=== PATIENT | female | born 1990 | race Caucasian/White ===

== ENCOUNTER 2016-06-05 08:29 | Emergency (ER) | payer OTHER ==
[~2016-06-05] VITALS: Wt 95.5 kg
[~2016-06-05 08:29] MED LIST: ACET325T33 PO; FAMO-18 PO; IBUP-1542 PO; OMEP20CA9 PO
[2016-06-05 09:11] LABS: URINE BLOOD (Dip) POC Trace-intact (NEGATIVE)
[2016-06-05] MEDS ORDERED: HYDROCODONE/APAP (5/325) TAB PO ONE (09:30)
[2016-06-05] MEDS ORDERED: LIDOCAINE/MYLANTA 40 ML BTL PO ONE (09:30)
[2016-06-05] MEDS ORDERED: FAMOTIDINE 20 MG TAB PO ONE (09:30)
[2016-06-05 09:34] LABS: BASOPHIL # 0.1 10^3/ul (0.0-0.1); BASOPHILS % 0.7 % (0.0-2.0); EOSINOPHILS # 0.3 10^3/ul (0.0-0.5); EOSINOPHILS % 3.9 % (0.0-7.0); HEMATOCRIT 39.9 % (37.0-47.0); HEMOGLOBIN 13.6 g/dl (12.0-16.0); LYMPHOCYTES # 2.6 10^3/ul (0.8-2.9); LYMPHOCYTES % 36.2 % (15.0-51.0); MEAN CORPUSCULAR VOLUME 82.4 fl (82.0-101.0); MEAN PLATELET VOLUME 8.2 fl (7.4-10.4); MONOCYTE # 0.4 10^3/ul (0.3-0.9); MONOCYTES % 5.7 % (0.0-11.0); NEUTROPHIL # 3.8 10^3/ul (1.6-7.5); NEUTROPHILS % 53.5 % (39.0-77.0); PLATELET COUNT 306 10^3/UL (140-440); RED BLOOD COUNT 4.84 10^6/ul (4.20-5.40); RED CELL DISTRIBUTION WIDTH 14.8 % (11.5-14.5); UNCORRECTED WBC 7.2 10^3/ul (4.8-10.8); WHITE BLOOD COUNT 7.2 10^3/ul (4.8-10.8)
[2016-06-05 09:35] LABS: ADD UMIC YES; URINE BILIRUBIN (Dip) NEGATIVE (NEGATIVE); URINE BLOOD (Dip) NEGATIVE (NEGATIVE); URINE COLOR LT. YELLOW (YELLOW); URINE GLUCOSE (Dip) NEGATIVE (NEGATIVE); URINE KETONES (Dip) NEGATIVE (NEGATIVE); URINE LEUKOCYTE ESTERASE (Dip) TRACE (NEGATIVE); URINE NITRITE (Dip) NEGATIVE (NEGATIVE); URINE TOTAL PROTEIN (Dip) NEGATIVE (NEGATIVE); URINE UROBILINOGEN (Dip) 0.2 E.U./dL (0.1-1.0)
[2016-06-05 09:38] LABS: CONDITION 1; LH ANALYZER COMMENTS 1
[2016-06-05 09:39] LABS: ALBUMIN 4.4 g/dl (3.3-4.9)
[2016-06-05 09:40] LABS: POTASSIUM 4.2 mmol/L (3.5-5.1)
[2016-06-05 09:42] LABS: ALBUMIN/GLOBULIN RATIO 1.25; BILIRUBIN,INDIRECT 0.3 mg/dl (0-1.1); BILIRUBIN,TOTAL 0.3 mg/dl (0.2-1.3); CREATININE 0.56 mg/dl (0.44-1.00); TOTAL PROTEIN 7.9 g/dl (6.1-8.1)
[2016-06-05 09:43] LABS: CALCIUM 9.5 mg/dl (8.4-10.2)
[2016-06-05 10:03] LABS: BACTERIA,URINE OCCASIONAL
[2016-06-05 10:04] LABS: URINE RBCS 0-2 /HPF (0)
--- NOTE | 2016-06-05 10:26 | ERD ---
ER Documentation Chief Complaint Date/Time DATE: 06/05/16 TIME: 10:20 Chief Complaint abd pain HPI This is a 26 y/o female that presents to the ER with intermittent epigastric pain for the last few months. Patient's last episode occurred 4-5 months ago. This episode started yesterday. Pain is described as "stabbing" and it radiates to the RUQ and the LUQ.Nothing makes the pain better or worse. Patient admits to nausea but denies vomiting and diarrhea. Patient denies any fevers or chills. She denies any urinary frequency or dysuria. Patient's last normal menstrual period was May 18, 2016. Patient denies chest pain or shortness of breath. ROS 12 point review of systems was done, all negative except per HPI. Medications Home Meds Active Scripts Famotidine* (Pepcid*) 20 Mg Tablet, 20 MG PO BID for 14 Days, TAB Prov:LESLIE FLORES 06/05/16 Famotidine* (Pepcid*) 20 Mg Tablet, 20 MG PO BID for 30 Days, TAB Prov:ANGELO PAIGE PA-C 08/14/15 Acetaminophen* (Tylenol*) 325 Mg Tablet, 2 TAB PO Q8 Y for PAIN AND OR ELEVATED TEMP, #20 TAB Prov:ANGELO PAIGE PA-C 08/14/15 Omeprazole* (Prilosec*) 20 Mg Capsule.dr, 20 MG PO DAILY, #30 CAP Prov:EMERSON REYES PA-C 05/23/15 Ibuprofen* (Motrin*) 600 Mg Tab, 600 MG PO Q6H Y for PAIN, #30 TAB Prov:EMERSON REYES PA-C 05/23/15 Allergies Allergies: Coded Allergies: No Known Allergy (Unverified , 05/30/12) PMhx/Soc Medical and Surgical Hx: pt denies Medical Hx, pt denies Surgical Hx Hx Alcohol Use: No Hx Substance Use: No Hx Tobacco Use: No Physical Exam Vitals Vital Signs Date Time Temp Pulse Resp B/P Pulse Ox O2 Delivery O2 Flow Rate FiO2 06/05/16 08:32 98.4 84 20 113/52 97 Physical Exam GENERAL: The patient is well developed and appropriate for usual state of health , in no apparent distress. HEENT: Atraumatic. . CHEST: Clear to auscultation bilaterally. There are no rales, wheezes or rhonchi. HEART: Regular rate and rhythm. No murmurs, clicks, rubs or gallops. ABDOMEN: Soft +TTP in the epigastric area. Good bowel sounds. No rebound or guarding. No gross peritonitis. No gross organomegaly or masses. No Sarmiento sign or McBurney point tenderness. BACK: No midline or flank tenderness. EXTREMITIES: Full range of motion. Grossly neurovascularly intact. NEURO: Alert and oriented. SKIN: The skin is warm and dry. Result Diagram: 06/05/1691906/05/1620 Results 24 hrs Laboratory Tests Test 06/05/16 09:11 06/05/16 09:20 Bedside Urine Blood Trace-intact Bedside Urine Glucose (UA) Negative Bedside Urine Ketones (LAB) Negative Bedside Urine Leukocyte Esterase (L Negative Bedside Urine Nitrite (LAB) Negative Bedside Urine Protein (LAB) Negative Bedside Urine pH (LAB) 7.0 Alanine Aminotransferase (ALT/SGPT) 25IU/L Albumin 4.4g/dl Albumin/Globulin Ratio 1.25 Alkaline Phosphatase 69IU/L Anion Gap 17 Aspartate Amino Transf (AST/SGOT) 15IU/L Basophils # 0.110^3/ul Basophils % 0.7% Blood Morphology Comment Blood Urea Nitrogen 7mg/dl Calcium Level 9.5mg/dl Carbon Dioxide Level 24mmol/L Chloride Level 106mmol/L Creatinine 0.56mg/dl Direct Bilirubin 0.00mg/dl Eosinophils # 0.310^3/ul Eosinophils % 3.9% Globulin 3.50g/dl Glucose Level 93mg/dl Hematocrit 39.9% Hemoglobin 13.6g/dl Indirect Bilirubin 0.3mg/dl Lipase 84U/L Lymphocytes # 2.610^3/ul Lymphocytes % 36.2% Mean Corpuscular Hemoglobin 28.0pg Mean Corpuscular Hemoglobin Concent 34.0g/dl Mean Corpuscular Volume 82.4fl Mean Platelet Volume 8.2fl Monocytes # 0.410^3/ul Monocytes % 5.7% Neutrophils # 3.810^3/ul Neutrophils % 53.5% Nucleated Red Blood Cells # 0.010^3/ul Nucleated Red Blood Cells % 0.0/100WBC Platelet Count 42037^3/UL Potassium Level 4.2mmol/L Red Blood Count 4.8410^6/ul Red Cell Distribution Width 14.8% Sodium Level 143mmol/L Total Bilirubin 0.3mg/dl Total Protein 7.9g/dl Urine Bacteria OCCASIONAL Urine Bilirubin NEGATIVE Urine Clarity CLEAR Urine Color LT. YELLOW Urine Epithelial Cells RARE Urine Glucose NEGATIVE% Urine Hemoglobin NEGATIVE Urine Ketones NEGATIVE Urine Leukocyte Esterase TRACE Urine Microscopic RBC 0-2/HPF Urine Microscopic WBC 5-10/HPF Urine Nitrite NEGATIVE Urine Specific Ignacio 1.010 Urine Total Protein NEGATIVE Urine Urobilinogen 0.2 E.U./dL Urine pH 7.0 White Blood Count 7.210^3/ul Current Medications Medications (Trade) Dose Ordered Sig/Jorgito Route PRN Reason Start Time Stop Time Status Last Admin Dose Admin Acetaminophen/ Hydrocodone Bitart ([place] (5/325)) 1 tab ONCE ONCE PO 06/05/16 09:30 06/05/16 09:31 DC 06/05/16 09:24 Miscellaneous Medication (Gi Cocktail (2)) 40 ml ONCE ONCE PO 06/05/16 09:30 06/05/16 09:31 DC 06/05/16 09:23 Famotidine (Pepcid) 20 mg ONCE ONCE PO 06/05/16 09:30 06/05/16 09:31 DC 06/05/16 09:23 Procedures/MDM Differential Diagnosis: GERD, gastritis, peptic ulcer disease, pancreatitis, cholecystitis, choledocholithiasis, biliary colic, cholangitis, [id number] , ACS/CT, Pnuemonia . This is a 26-year-old female presents to the ER with intermittent epigastric. At this time etiology of epigastric pain is unknown, however there is no evidence of cholycystitis, or acute abdomen. Patient is afebrile and well appearing. This could be acid reflux disease. She will be sent home with Famotidine. Patient needs to f/u with her PCP within 1-2 days or return to ER sooner if symptoms worsen. Plan was discussed with the patient she understands and agrees with plan. Departure Diagnosis: Primary Impression: Epigastric pain Condition: Stable LESLIE FLORES Jun 05, 2016 10:26
--- NOTE | 2016-06-05 11:38 | RADRPT ---
PROCEDURE: US Abdomen. CLINICAL INDICATION: abdominal pain TECHNIQUE: Multiple real-time images were acquired of the patient's right upper quadrant abdomen a nd retroperitoneum utilizing a high resolution transducer. COMPARISON: 08/14/2015 FINDINGS: The liver demonstrates slightly increased echogenicity. The liver is normal in size and no focal so lid lesions are seen. The liver measures 17.3 cm in length. The portal vein is patent with normal di rection of flow. No intrahepatic biliary dilatation is seen. No gallstones are identified within the gallbladder. There is no pericholecystic fluid or gallbladd er wall thickening. The common bile duct measures 4 mm in maximal dimension. The visualized portions of the pancreas are unremarkable. The tail of the pancreas is not seen. No free fluid is identified. The right kidney is normal in size, and demonstrate normal echogenicity and cortical thickness. The right kidney measures 11.2 cm in long dimension. There is no evidence of hydronephrosis. There are no kidney stones. RPTAT: AA IMPRESSION: Mild fatty infiltration of the liver. No evidence of gallstones. .Ronn Chavez MD, MD Date Time Electronically viewed and signed by .Ronn Chavez MD, on 06/05/2016 11:38 .S/
[2016-06-05] MEDS ORDERED: FAMO-18 PO (11:48)
== END 2016-06-05 12:05 | disposition home or self-care (01) ==
LOC: FTE 08:29
DX: R10.13 Epigastric pain (principal)
CPT/HCPCS: 36415; 76705; 80053; 81001; 81003; 83690; 85025

== ENCOUNTER 2017-06-06 15:24 | Emergency (ER) | END 2017-06-06 20:30 | disposition home or self-care (01) ==

== ENCOUNTER 2017-06-29 20:57 | Emergency (ER) | END 2017-06-30 08:32 | disposition home or self-care (01) ==

== ENCOUNTER 2018-03-21 14:39 | Emergency (ER) | END 2018-03-21 16:47 | disposition home or self-care (01) ==

== ENCOUNTER 2018-10-08 19:51 | Emergency (ER) | payer OTHER ==
[~2018-10-08] VITALS: Ht 167.6 cm; Wt 113.6 kg
[~2018-10-08 19:51] MED LIST changes: -ACET325T33 PO; -FAMO-18 PO; +HYDR-3980 PO; +HYDR-4011 PO; -OMEP20CA9 PO; +ONDA4TAB14 PO; +ONDA8TAB14 PO; +PANT40TA3 PO
[2018-10-08 20:13] VITALS: BP 144/74; PULSE 94; RESP 18; Ht 167.6 cm; Wt 113.6 kg
[2018-10-08] MEDS ORDERED: LORAZEPAM 1 MG TAB PO ONE (23:30)
[2018-10-08] MEDS ORDERED: ASPIRIN 325 MG TAB PO ONE (23:30)
--- NOTE | 2018-10-08 23:30 | ERD ---
ER Documentation Chief Complaint Chief Complaint sharp/pressure like pain rad to back w/ SOB x3 days. no n/v HPI This is a 28-year-old female presents to emerge department with complaints of chest pain that is on and off for about 3 days. Stated that she has not sleep well in the last few days because she is taking care of her baby. LMP: 09/06/2018. G6, . Denies headache, head injury, loss of consciousness, dizziness, neck pain, neck stiffness, throat pain, difficulty swallowing, difficulty breathing lying flat, shoulder pain, chest pain, back pain, abdominal pain, nausea, vomiting, constipation, diarrhea, urinary symptoms, or possibility being , loss of bowel and bladder control, trauma, injury, falls, difficulty walking due to pain, numbness or tingling sensation, calf pain, recent travel, recent major surgery in the last 3 weeks, calf pain, recent long travel, recent exposure to any illness, recent antibiotic use in the last 3 months, fever, chills, seizures. Past medical history: Denies. Denies family history of heart attack before age 50. Surgical history: Social: Denies smoking, use of alcoholic beverages, use of illegal drugs. ROS All systems reviewed and are negative except as per history of present illness. Medications Home Meds Active Scripts Hydroxyzine Hcl* (Hydroxyzine Hcl*) 50 Mg Tablet, 50 MG PO Q6H PRN for ANXIETY, #30 TAB Prov:VINH LEMONS 10/08/18 Ibuprofen* (Motrin*) 800 Mg Tab, 800 MG PO Q6H PRN for PAIN AND OR ELEVATED TEMP, #30 TAB Prov:VINH LEMONS 10/08/18 Ondansetron (Ondansetron Odt) 8 Mg Tab.rapdis, 8 MG PO Q6H PRN for NAUSEA AND/OR VOMITING, #8 TAB Prov:PIERRE BENAVIDEZ MD 03/21/18 Hydrocodone/Acetaminophen ([place] 5-325 Tablet) 1 Each Tablet, 1 TAB PO Q6H PRN for PAIN, #10 TAB Prov:PIERRE BENAVIDEZ MD 03/21/18 Pantoprazole* (Protonix*) 40 Mg Tablet.dr, 40 MG PO DAILY, #30 TAB Prov:PIERRE BENAVIDEZ MD 03/21/18 Ibuprofen* (Motrin*) 600 Mg Tab, 600 MG PO Q6, #30 TAB Prov:CHRIS PRICE PA-C 06/30/17 Ondansetron (Ondansetron Odt) 4 Mg Tab.rapdis, 4 MG PO Q6H PRN for NAUSEA AND/OR VOMITING, #10 TAB Prov:MIGUELINA GONZALEZ MD 06/06/17 Hydrocodone/Acetaminophen ([place] 10-325 Tablet) 1 Each Tablet, 1 TAB PO Q6H PRN for PAIN, #7 TAB Prov:MIGUELINA GONZALEZ MD 06/06/17 Allergies Allergies: Coded Allergies: No Known Allergy (Unverified , 06/30/17) PMhx/Soc History of Surgery: Yes (tubal ligation) Anesthesia Reaction: No Hx Neurological Disorder: No Hx Respiratory Disorders: No Hx Cardiac Disorders: No Hx Psychiatric Problems: No Hx Miscellaneous Medical Probl: No Hx Alcohol Use: No Hx Substance Use: No Hx Tobacco Use: No Smoking Status: Current some day smoker Physical Exam Vitals Physical Exam Const: No acute distress Head: Atraumatic Eyes: Normal Conjunctiva ENT: Normal External Ears, Nose and Mouth. Neck: Full range of motion. No meningismus. Resp: Clear to auscultation bilaterally. Chest area: No vesicular lesions. Cardio: Regular rate and rhythm, no murmurs Abd: Soft, non tender, non distended. Normal bowel sounds Skin: No petechiae or rashes Back: No midline or flank tenderness Ext: No cyanosis, or edema Neur: Awake and alert. Denies auditory/visual hallucinations/delusions. Not suicidal. Not homicidal. Has the capacity to decide for herself. Has good support system at home. Psych: Normal Mood and Affect Results 24 hrs Current Medications Medications Dose Sig/Jorgito Start Time Status Last (Trade) Ordered Route PRN Stop Time Admin Dose Reason Admin Aspirin 325 mg ONCE ONCE 10/08/18 DC 10/08/18 (Aspirin) PO 23:30 23:29 10/08/18 23:31 Lorazepam 1 mg ONCE ONCE 10/08/18 DC 10/08/18 (Ativan) PO 23:30 23:29 10/08/18 23:31 Procedures/MDM Diagnostic tests: EKG: Normal sinus rhythm with a ventricular rate of 86 bpm. No STEMI. Read by supervising physician. Treatment: Aspirin. Ativan. Re-evaluation: Denies chest pain. No diaphoresis. Differential diagnosis I have low suspicion for acute microinfarction, acute coronary syndrome, pneumonia, pneumothorax, hemothorax, cardiac process. Final diagnosis: Costochondritis. Anxiety. Prescription: Motrin. Hydroxyzine. Follow-up with PCP in the next 24-48 hours. Come back here in the emergency department for any new symptoms or any worsening symptoms. All questions and concerns were answered. Patient and family members verbalized understanding and agreed with plan of care. Hemodynamically stable on discharge. Departure Diagnosis: Primary Impression: Chest pain Additional Impressions: Costochondritis Anxiety Condition: Stable Additional Instructions: Follow-up with PCP in the next 24-48 hours. Come back here in the emergency department for any new symptoms or any worsening symptoms. VINH LEMONS October 08, 2018 23:30
[2018-10-08] MEDS ORDERED: HYDR50TA15 PO (23:31)
[2018-10-08] MEDS ORDERED: IBUP800T48 PO (23:31)
== END 2018-10-08 23:46 | disposition home or self-care (01) ==
LOC: FTE 19:51
DX: M94.0 Chondrocostal junction syndrome [Tietze] (principal); F17.210 Nicotine dependence, cigarettes, uncomplicated; F41.9 Anxiety disorder, unspecified
CPT/HCPCS: Z7610 ×2